=== PATIENT | female | born 1965 | race Caucasian/White ===

== ENCOUNTER 2018-12-22 07:54 | Day surgery (SDC) | payer OTHER ==
[2018-12-22] MEDS ORDERED: FENTAnyl 50 MCG/ML VIAL (12:58)
[2018-12-22] MEDS ORDERED: MIDAZOLAM 1 MG/ML 2 ML INJ (12:58)
[2018-12-22] MEDS: LIDOCAINE 1%/EPI (1:100,000) (MDV) 20 ML (13:22)
[2018-12-22] MEDS ORDERED: ROCURONIUM 50 MG INJ (14:36)
[2018-12-22] MEDS ORDERED: LIDOCAINE 2% (SDV) 5 ML INJ (14:36)
[2018-12-22] MEDS ORDERED: SUCCINYLCHOLINE CHLORIDE 100 MG/5 ML SYG IV (14:36)
[2018-12-22] MEDS ORDERED: PROPOFOL 20 ML (14:36)
[2018-12-22] MEDS ORDERED: ONDANSETRON 4 MG INJ (14:37)
[2018-12-22] MEDS ORDERED: CEFAZOLIN 1 GM INJ (14:37)
[2018-12-22] MEDS ORDERED: FENTAnyl 50 MCG/ML VIAL IV (15:00)
[2018-12-22] MEDS ORDERED: DIPHENHYDRAMINE 50 MG INJ IV (15:00)
[2018-12-22] MEDS ORDERED: MEPERIDINE 25 MG INJ IV (15:00)
[2018-12-22] MEDS: HYDROmorphONE 1 MG/5 ML IV SYRINGE IV ×2 (15:18→15:50)
[2018-12-22] MEDS: ONDANSETRON 4 MG INJ IV (15:18)
== END 2018-12-22 17:20 | disposition home or self-care (01) ==
LOC: SDS 07:54
DX: D34 Benign neoplasm of thyroid gland (principal); E78.5 Hyperlipidemia, unspecified; E66.9 Obesity, unspecified; Z68.27 Body mass index [BMI] 27.0-27.9, adult
CPT/HCPCS: 60210; 84703; 88307